=== PATIENT | male | born 1985 | race Two or more races ===

== ENCOUNTER 2022-10-21 05:06 | Emergency (ER) | payer OTHER ==
[~2022-10-21] VITALS: Ht 190.5 cm; Wt 136.1 kg
[2022-10-21] MEDS ORDERED: COZAAR50 MG PO (05:20)
[2022-10-21] MEDS ORDERED: HYDROCHLOROTHIA25 MG PO (05:20)
[2022-10-21] MEDS ORDERED: MEDI-MECLIZINE25 MG PO (11:28)
== END 2022-10-21 12:19 | disposition home or self-care (01) ==
LOC: ER 05:06
DX: R42 Dizziness and giddiness (principal); I10 Essential (primary) hypertension